=== PATIENT | female | born 1960 | race Two or more races ===

== ENCOUNTER 2021-07-12 08:35 | Emergency (ER) | payer OTHER, SELFPAY ==
--- NOTE | ~2021-07-12 | US_ITS ---
EXAMINATION: US VENOUS ULTRASOUND WITH DOPPLER LOWER EXTREMITY, RIGHT CLINICAL INFORMATION: Right leg swelling numbness evaluate for DVT COMPARISON: None TECHNIQUE: Ultrasound of the deep veins is performed from the hip to the calf with compression sonography and color and pulse Doppler assessment. Spectral analysis with color-flow imaging is performed. FINDINGS: There is normal venous compression and respiratory variation and augmented flow. The visualized common femoral vein, superficial femoral vein, profunda femoral vein, popliteal vein, and the trifurcation region shows no evidence of deep venous thrombosis. There is no significant popliteal fossa cyst. Contralateral common femoral vein is patent. If the patient's symptoms persist, followup ultrasound in 5 days 7 days might be of value to exclude proximal propagation from a non-visualized calf vein. US/US venous duplex LE RT IMPRESSION: No DVT demonstrated in the right lower extremity.
[2021-07-12 08:44] VITALS: BP 188/86; PULSE 82; RESP 18; TEMP 36.9; O2SAT 98; BMI 30.2
--- NOTE | 2021-07-12 09:08 | ED_ITS ---
HPI - Extremity Problem General Chief complaint: Extremity Problem Stated complaint: r leg numbness tingling swollen Time Seen by Provider: 07/12/21 08:50 Source: patient Mode of arrival: ambulatory Limitations: no limitations History of Present Illness HPI Narrative: 60-year-old female who presents emergency department for evaluation of right lower extremity tingling this and swelling. The patient states that she has been having a tingling sensation in her right lower extremity on and off for 1 month. She states that the tingling this has become constant over the past 2 weeks. The sensation starts in her hip pain goes down to her knee. She denies pain. She denies weakness. He has not had any loss of bowel control, difficulty urinating or urinary incontinence. She states that she does have bilateral lower back pain, she points the sacroiliac joints, she describes as a sharp/pressure pain. It is moderate intensity. She denies any injury. She also states that her last 2 weeks she has noticed swelling of her right leg. She states that her right leg is swollen from the ankle to the hip. She did call her PCP and was advised to go to the emergency department for evaluation. She denied fever, chills, rhinorrhea, sore throat, chest pain, nausea, vomiting, diarrhea, abdominal pain. She denied frequency urgency or dysuria. She states she has a cough mainly in the morning which is productive of thick sputum. She states that this is secondary to her smoking. She states that she always feels short of breath and she attributes this to her smoking as well. MD Complaint: extremity pain Onset (ago): week(s) (4) Pain Consistency: constant (X2 weeks) and intermittent (Intermittent 4 weeks prior and now constant over the past 2 weeks) Location: right Severity scale (1-10): 3 Quality: other (Tingling) Radiation: none (Hip to right knee) Relieving factors: nothing Exacerbating factors: nothing Associated symptoms: shortness of breath and other (Right leg swelling) Related Data Previous Rx's Medication Instructions Recorded nitrofurantoin 100 mg PO Q12H 7 Days #14 cap 07/12/21 monohydrate/macrocrystals 100 mg capsule (Macrobid) prednisone 20 mg tablet 60 mg PO DAILY 7 Days #21 tab 07/12/21 Allergies Allergy/AdvReac Type Severity Reaction Status Date / Time Penicillins [PENICILLINS] Allergy Intermediate ITCHY - Verified 07/12/21 08:44 THROAT CLOSES Sulfa (Sulfonamide Allergy Intermediate ITCHY - Verified 07/12/21 08:44 Antibiotics) THROAT [SULFA (SULFONAMIDE CLOSES ANTIBIOTICS)] Review of Systems Review of Systems: Yes all other systems are reviewed and are negative [facility] Past Medical History [facility] Narrative: Past medical history: Insomnia, GERD. Social history: The patient smokes 1 pack of cigarettes per day times 40 years. She drinks 2-3 beers per day. She denies drug use. Medical History (Updated 07/12/21 @ 11:37 by Zack Ricci MD) GERD (gastroesophageal reflux disease) Social History Social History Advance Directives: No Advance Directives Information Provided: Yes Physical Exam Vital Signs: Vital Signs: Last Vital Signs Temp 97.9 F 07/12/21 10:50 Pulse 67 07/12/21 10:50 Resp 18 07/12/21 08:44 BP 166/75 H 07/12/21 10:50 Pulse Ox 97 07/12/21 10:50 BMI result Body Mass Index 30.2 Const: General: cooperative and no acute distress Orientation/consciousness: oriented to person and oriented to place Limi tations: no limitations HEENT: Head: Yes normal to inspection, Yes normocephalic and Yes atraumatic Ears: external ears normal General nose exam: Normal external nose present Face and sinus: Yes normal facial exam Mouth: Normal oral and palatal mucosa present Throat: Yes posterior oropharynx normal Eyes: General: appearance normal, both eyes and all related structures Pupils: Equal, round and reactive pupils present Neck: Neck: Yes normal visual inspection, Yes no lymphadenopathy, Yes trachea midline and Yes supple Chest: Chest palpation & inspection: normal inspection of the chest and normal palpation of entire chest wall Resp: Effort & Inspection: normal respiratory effort and able to speak in complete sentences Auscultation: clear to auscultation bilaterally Cardio: Rate: regular rate Rhythm: regular rhythm Heart sounds: S1 normal heart sound present, S2 normal heart sound present and no murmurs GI: Inspection: Yes normal to inspection Palpation (GI): Soft to palpation, nontender and no guarding Auscultation: normal bowel sounds Back/Spine/Pelvis: Other: Patient has no spinal tenderness. No paraspinal muscle tenderness. does have tenderness palpation her SI joints bilaterally right greater than left. She has negative straight leg raises bilaterally. She has normal strength in her lower extremities. Skin: General skin exam: no rashes or lesions noted Neuro: General: oriented to person and oriented to place Cranial nerves: Yes CN's II-XII intact bilaterally and Yes Equal, round and reactive pupils present Cognition (Neuro): normal cognition Motor exam (neuro): 5/5 motor strength present throughout Extrem: Other: On visual inspection, the patient's lower extremities appear to be similar in size, she has negative Estee test bilaterally, no calf tenderness, she has normal strength. Psych: Appearance: grossly normal Speech and movement: Normal speech and movement present Affect: normal affect Attitude: cooperative Thought process: Normal thought process present Thought content: Normal thought content present Course Course Course Narrative: 60-year-old female who presents emergency department for evaluation of right leg tingling 1 month which was intermittent but has been constant over the past 2 weeks. The sensation travels from her right hip to her right knee. She has also noticed swelling of the right leg from the ankle to the hip over the past 2 weeks. She did complain of lower back pain and does have tenderness with palpation over her SI joints bilaterally. She has negative straight leg raises a normal strength. On visual inspection I do not see any asymmetry of the patient's lower extremities. Differential includes was not limited to sciatica, sacral ileitis, disc disease, DVT, UTI. I did order a urinalysis and right lower extremity duplex ultrasound. 1131: Patient's duplex ultrasound of the right lower extremity was negative for DVT. Patient's urinalysis revealed 2+ leukocyte esterase, positive nitrates. Microscopic revealed too numerous to count wbc's, 3+ bacteria, 2+ squamous cells. At this time, I suspect that the patient's right leg paresthesias is consistent with radicular pain. Patient was started on prednisone 60 mg once a day for 7 days. Patient's UTI will be treated with Macrobid twice a day for 7 days. The patient was given printed and verbal instructions discharged home. MDM - Extremity (Nontraumatic) Lab Data Labs: Lab Results 07/12/21 Range/Units 09:15 Urine Color YELLOW Urine Appearance CLOUDY Urine pH 5.5 (5.0-8.0) Ur Specific [place] 1.025 (1.005-1.025) Urine Protein NEG (NEG-TRACE) MG/DL Urine Glucose (UA) NEG (NEG) MG/DL Urine Ketones NEG (NEG) MG/DL Urine Blood NEG (NEG) Urine Nitrite POS H (NEG) Ur Leukocyte Esterase 2+ H (NEG) Urine RBC 0 (0) /HPF Urine WBC TNTC H (0-4) /HPF Ur Squamous Epith Cells 2+ /LPF Urine Bacteria 3+ /LPF Urine Mucus 1+ /LPF Discharge Plan Discharge Clinical Impression: Acute right lumbar radiculopathy, UTI (urinary tract infection) Patient Disposition: Home, Self-Care Instructions: Urinary Tract Infection in Women (DC), Lumbar Radiculopathy (ED) Additional Instructions: The Doppler ultrasound of your right lower extremity was negative for a blood clot (deep venous thrombosis/DVT). If your symptoms persist or get worse over the next 4 days then your primary provider should get a repeat ultrasound. The tingling sensation in your right leg could be caused by an inflammatory condition either sciatica, lumbar disc disease with radiculitis or sacral ileitis. The treatment is to start you on an anti-inflammatory medication therefore I am prescribing prednisone. Take prednisone 20 mg pills, 3 pills once a day for 7 days. While you taking prednisone do not take any [id number] anti-inflammatory pain medications such as ibuprofen, Motrin, Advil, Aleve or naproxen. Take Tylenol (acetaminophen) 500 mg pills, 2 pills every 4 to 6 hours as needed for pain. For urinary tract infection take Macrobid 1 pill twice a day for 7 days. Follow-up with your doctor in 2 days. Please return to the emergency department if your symptoms get worse or if you develop any symptoms that are concerning to you. Prescriptions: New prednisone 20 mg tablet 60 mg PO DAILY 7 Days Qty: 21 0RF nitrofurantoin monohyd/m-cryst [Macrobid] 100 mg capsule 100 mg PO Q12H 7 Days Qty: 14 0RF Rx Instructions: must administer with a meal/food
[2021-07-12 09:30] LABS: Appearance Urine CLOUDY; Color Urine YELLOW; Glucose Urine UA NEG (NEG); Leukocyte Esterase Urine 2+ (NEG); Nitrite Urine POS (NEG); PH 5.5 (5.0-8.0); Specific Gravity - Urine 1.025 (1.005-1.025); UACC Culture Trigger YES; Urine Blood NEG (NEG); Urine Ketones NEG (NEG); Urine Protein NEG (NEG-TRACE)
[2021-07-12 09:36] LABS: Bacteria Urine 3+ /LPF; RBC Urine 0 /HPF (0); WBC Urine TNTC /HPF (0-4)
[2021-07-12 09:37] LABS: Mucus Urine 1+ /LPF; Squamous Epithelial Cell Urine 2+ /LPF
[2021-07-12 10:50] VITALS: BP 166/75; PULSE 67; TEMP 36.6; O2SAT 97
== END 2021-07-12 11:49 | disposition home or self-care (01) ==
PROVIDERS: Emergency Provider Emergency Medicine Emergency Medical Services
DX: M54.16 Radiculopathy, lumbar region (principal); N39.0 Urinary tract infection, site not specified; B96.1 Klebsiella pneumoniae [K. pneumoniae] as the cause of diseases classified elsewhere; M79.604 Pain in right leg; M54.50 Low back pain, unspecified; R20.0 Anesthesia of skin; F17.200 Nicotine dependence, unspecified, uncomplicated
CPT/HCPCS: 81001; 87086; 87088; 87186; 93971; 99284

== ENCOUNTER 2022-04-23 08:37 | Emergency (ER) | payer OTHER, SELFPAY ==
--- NOTE | ~2022-04-23 | XR_ITS ---
EXAMINATION: XR chest 1V CLINICAL INFORMATION: Cough COMPARISON: None TECHNIQUE: XR chest 1V Tubes and lines: None Lungs and pleura: Minimal diffuse peribronchial cuffing could be small airway disease, no focal consolidation pneumonia. Heart and mediastinum: The mediastinum is within normal limits.. Bones/soft tissue: Skeletal structures included are normal for patient's age. XR/XR chest 1V IMPRESSION: *No radiographic evidence of pneumonia. *Minimal parabronchial cuffing could be small airway disease. *Chest x-ray has limited sensitivity, if patient symptoms persist, consider correlation with follow-up low-dose chest CT.
[2022-04-23 08:57] VITALS: BP 186/78; PULSE 75; RESP 18; TEMP 36.6; O2SAT 98; BMI 32.1
[2022-04-23 10:43] VITALS: BP 172/82; PULSE 75; RESP 18; TEMP 36.6; O2SAT 98
--- NOTE | 2022-04-23 11:13 | ED.URI ---
HPI - URI/Sore Throat General Chief Complaint: Upper Respiratory Symptoms Stated Complaint: Wheezing/Difficulty breathing Time Seen by Provider: 04/23/22 10:15 Source: patient Mode of arrival: ambulatory History of Present Illness HPI Narrative: 61-year-old female with past medical history of GERD, asthma, presenting to the ED complaining of productive cough, rhinorrhea, congestion, SOB, chest discomfort when coughing x9 days. Denies recent travel, sick contacts, pedal edema, abdominal pain, nausea/vomiting MD elicited complaint: cough, rhinorrhea and nasal congestion Onset (ago): week(s) Related Data Previous Rx's Medication Instructions Recorded nitrofurantoin 100 mg PO Q12H 7 days #14 caps 07/12/21 monohydrate/macrocrystals 100 mg capsule (Macrobid) prednisone 20 mg tablet 60 mg PO DAILY 7 days #21 tabs 07/12/21 azithromycin 250 mg tablet See Rx Instructions PO .COMPLEX #6 04/23/22 tabs codeine 6.3 mg-guaifenesin 100 8 ml PO Q4-6H PRN cough #100 mL 04/23/22 mg/5 mL oral liquid fluticasone propionate 50 2 spray intranasal DAILY #16 grams 04/23/22 mcg/actuation nasal spray,suspension (Flonase Allergy Relief) prednisone 20 mg tablet 40 mg PO DAILY 5 days #10 tabs 04/23/22 Allergies Allergy/AdvReac Type Severity Reaction Status Date / Time Penicillins [PENICILLINS] Allergy Intermediate ITCHY - Verified 07/12/21 08:44 THROAT CLOSES Sulfa (Sulfonamide Allergy Intermediate ITCHY - Verified 07/12/21 08:44 Antibiotics) THROAT [SULFA (SULFONAMIDE CLOSES ANTIBIOTICS)] Review of Systems Review of Systems: Constitutional: No Fever, No Chills, +fatigue ENT/Mouth: No Ear Pain, + Nasal Congestion, No Sinus Pain, No Hoarseness, No sore throat, + Rhinorrhea, No Swallowing Difficulty Cardiovascular: + Chest Pain when coughing, + SOB Respiratory: + Cough, + Sputum, No Wheezing Gastrointestinal: No Nausea, No Vomiting, No Diarrhea, No Constipation, No Abdominal pain Genitourinary: No Dysuria, No Urinary Frequency, No Flank Pain Musculoskeletal: No joint pain, No Myalgias, No Joint Swelling Skin: No Skin Lesions, No rash Neuro: No Weakness, No Numbness Yes all other systems are reviewed and are negative Constitutional: Constitutional: Reports as per [facility] Past Medical History Attestation statement: The following information was validated with the patient. Medical History GERD (gastroesophageal reflux disease) Social History Social History Alcohol intake: current Alcohol intake frequency: holidays/special occasions only Smoked in Last 30 Days: No Use of substances other than those prescribed or required for medical reasons: No Advance Directives: No Advance Directives Information Provided: Yes Patient : No Physical Exam Vital Signs: Vital Signs: Last Vital Signs Temp 98 F 04/23/22 10:43 Pulse 64 04/23/22 12:16 Resp 18 04/23/22 12:16 BP 172/61 H 04/23/22 12:16 Pulse Ox 99 04/23/22 12:16 O2 Del Method 04/23/22 12:16 BMI result Body Mass Index 32.1 Const: General: cooperative, healthy appearing, comfortable, no acute distress and well developed Orientation/consciousness: patient oriented x3 Limitations: no limitations HEENT: Head: Yes normal to inspection and Yes atraumatic Ears: hearing grossly normal bilaterally, external ears normal, TM's normal bilaterally and mastoids normal General nose exam: Normal external nose present Face and sinus: Yes normal facial exam Mouth: Normal oral and palatal mucosa present Throat: Yes posterior oropharynx normal, Yes tonsils normal, Yes uvula midline, No peritonsillar mass, No posterior oropharynx abnormal and No uvula laterally displaced Eyes: General: appearance normal, both eyes and all related structures EOM: EOMs intact bilaterally Neck: Neck: Yes normal visual inspection and Yes no meningeal signs Resp: Effort & Inspection: normal respiratory effort and no respiratory distress Auscultation: clear to auscultation bilaterally Cardio: Rate: regular rate Heart sounds: S1 normal heart sound present and S2 normal heart sound present Skin: Rashes: no rashes Wounds: no wounds Neuro: General: patient oriented x3, tone normal and no meningeal signs Gait exam (Neuro): Normal gait present Extrem: General: Yes normal to inspection, Yes no pedal edema and Yes no calf tenderness Course Course Course Narrative: -COVID-19/influenza/RSV negative -1204--XR chest 1V IMPRESSION: *No radiographic evidence of pneumonia. ? *Minimal parabronchial cuffing could be small airway disease. ? *Chest x-ray has limited sensitivity, if patient symptoms persist, consider correlation with follow-up low-dose chest CT. Results discussed with patient including worrisome signs and symptoms and strict return precautions, and when to return to the emergency department. They verbalized understanding and feel safe for discharge at this time. Medications Administered Discontinued Medications Generic Name Dose Route Start Last Admin Trade Name Freq PRN Reason Stop Dose Admin Albuterol Sulfate 4 puff 04/23/22 11:17 04/23/22 12:17 Albuterol Sulfate 90 Mcg 8 Gm Inhaler INHALE 04/23/22 11:18 4 puff ONCE ONE Administration Medical Decision Making Medical Decision Making MDM Narrative: 61-year-old female with past medical history of GERD, asthma, presenting to the ED complaining of productive cough, rhinorrhea, congestion, SOB, chest discomfort when coughing x9 days. On exam vital signs stable, NAD, nontoxic appearing, lungs CTA, no pedal edema. Concern for viral illness/bronchitis vs pneumonia. Low suspicion for ACS/PE or CHF Plan: COVID-19/influenza/RSV testing, CXR, albuterol inhaler, re-evaluate Differential Diagnosis Differential Diagnoses: The differential diagnosis associated with the presentation includes as above Lab Data 04/23/22 Unknown 04/23/22 Unknown Labs: Lab Results 04/23/22 04/23/22 04/23/22 Range/Units 10:54 Unknown Unknown WBC Cancelled RBC Cancelled Hgb Cancelled Hct Cancelled MCV Cancelled MCH Cancelled MCHC Cancelled RDW Cancelled Plt Count Cancelled MPV Cancelled Immature Gran % (Auto) Cancelled Neut % (Auto) Cancelled Lymph % (Auto) Cancelled [place] % (Auto) Cancelled Eos % (Auto) Cancelled Baso % (Auto) Cancelled Lymph # (Auto) Cancelled [place] # (Auto) Cancelled Eos # (Auto) Cancelled Baso # (Auto) Cancelled Abs Immat Gran (auto) Cancelled Absolute Neuts (auto) Cancelled Absolute Nucleated RBC Cancelled Nucleated RBC % (auto) Cancelled Sodium Cancelled Potassium Cancelled Chloride Cancelled Carbon Dioxide Cancelled Anion Gap Cancelled BUN Cancelled Creatinine Cancelled Estim Creat Clear Calc Cancelled Estimated GFR Cancelled Fasting Glucose Cancelled Estimat Average Glucose Hemoglobin A1c % Calcium Cancelled Total Bilirubin Cancelled AST Cancelled ALT Cancelled Alkaline Phosphatase Cancelled Total Protein Cancelled Albumin Cancelled Triglycerides Cancelled Cholesterol Cancelled LDL Cholesterol, Calc Cancelled HDL Cholesterol Cancelled Total PSA Cancelled Urine Color Urine Appearance Urine pH Ur Specific [place] Urine Protein Urine Glucose (UA) Urine Ketones Urine Blood Urine Nitrite Ur Leukocyte Esterase Urine Creatinine Urine Microalbumin Microalb/Creat Ratio Influenza Type A (PCR) NEGATIVE (Negative) Influenza Type B (PCR) NEGATIVE (Negative) RSV RNA Qual (PCR) NEGATIVE (Negative) SARS-CoV-2 RNA (RT-PCR) NEGATIVE (Negative) 04/23/22 04/23/22 04/23/22 Range/Units Unknown Unknown Unknown WBC RBC Hgb Hct MCV MCH MCHC RDW Plt Count MPV Immature Gran % (Auto) Neut % (Auto) Lymph % (Auto) [place] % (Auto) Eos % (Auto) Baso % (Auto) Lymph # (Auto) [place] # (Auto) Eos # (Auto) Baso # (Auto) Abs Immat Gran (auto) Absolute Neuts (auto) Absolute Nucleated RBC Nucleated RBC % (auto) Sodium Potassium Chloride Carbon Dioxide Anion Gap BUN Creatinine Estim Creat Clear Calc Estimated GFR Fasting Glucose Estimat Average Glucose Cancelled Hemoglobin A1c % Cancelled Calcium Total Bilirubin AST ALT Alkaline Phosphatase Total Protein Albumin Triglycerides Cholesterol LDL Cholesterol, Calc HDL Cholesterol Total PSA Urine Color Cancelled Urine Appearance Cancelled Urine pH Cancelled Ur Specific [place] Cancelled Urine Protein Cancelled Urine Glucose (UA) Cancelled Urine Ketones Cancelled Urine Blood Cancelled Urine Nitrite Cancelled Ur Leukocyte Esterase Cancelled Urine Creatinine Cancelled Urine Microalbumin Cancelled Microalb/Creat Ratio Cancelled Influenza Type A (PCR) (Negative) Influenza Type B (PCR) (Negative) RSV RNA Qual (PCR) (Negative) SARS-CoV-2 RNA (RT-PCR) (Negative) Independent Interpretation I performed an independent interpretation of an: Plain X-Ray Radiology Impression Discussion of test interpretation with radiology: I have reviewed the radiologist's reading. Prescription Management I considered prescription management with: Antiviral and Antibiotic Discharge Plan Discharge Clinical Impression: Bronchitis Patient Disposition: Home, Self-Care Instructions: Acute Bronchitis (ED) Additional Instructions: You tested negative for COVID-19, the flu, and RSV. Her x-ray does not show pneumonia Use albuterol inhaler at home as needed. In addition take Zithromax and prednisone Tessalon Perles are for cough. Flonase is and nasal decongestant Rest. Stay hydrated. If symptoms persist or worsen return to the emergency department. Please follow-up with her doctor Prescriptions: New azithromycin 250 mg tablet See Rx Instructions .ROUTE .COMPLEX Qty: 6 0RF Rx Instructions: take 500 mg today (day 1), then 250 mg for 4 days (days 2-5) prednisone 20 mg tablet 40 mg PO DAILY 5 Days Qty: 10 0RF fluticasone propionate [Flonase Allergy Relief] 50 mcg/actuation spray,suspension 2 spray intranasal DAILY Qty: 16 0RF Rx Instructions: administer into each nostril codeine-guaifenesin 6.3-100 mg/5 mL liquid 8 ml PO Q4-6H PRN (Reason: cough) Qty: 100 0RF No Action prednisone 20 mg tablet 60 mg PO DAILY 7 Days Qty: 21 0RF nitrofurantoin monohyd/m-cryst [Macrobid] 100 mg capsule 100 mg PO Q12H 7 Days Qty: 14 0RF Rx Instructions: must administer with a meal/food Referrals: Physician,Unknown J [Primary Care Provider] - Interventions: ED Discharge Assessment Last Done: 04/23/22 12:24 Discharge Date/Time: 04/23/22 12:25
[2022-04-23 11:46] LABS: Influenza A PCR NEGATIVE (Negative); Influenza B PCR NEGATIVE (Negative); Resp Syncy Virus RNA Qual PCR NEGATIVE (Negative); SARS COV2 PCR INHOUSE NEGATIVE (Negative)
[2022-04-23 12:16] VITALS: BP 172/61; PULSE 64; RESP 18; O2SAT 99
[2022-04-23] MEDS: Albuterol Sulfate 90 MCG 8 GM INHALER 4 PUFF INHALE (12:17)
== END 2022-04-23 12:25 | disposition home or self-care (01) ==
PROVIDERS: Emergency Provider Emergency Medicine
DX: J40 Bronchitis, not specified as acute or chronic (principal); R06.02 Shortness of breath; R07.89 Other chest pain; R05.9 Cough, unspecified; Z20.828 Contact with and (suspected) exposure to other viral communicable diseases; Z20.822 Contact with and (suspected) exposure to COVID-19; Z79.899 Other long term (current) drug therapy
CPT/HCPCS: 0241U; 71045; 99284